=== PATIENT | female | born 2000 | race Caucasian/White ===

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

== ENCOUNTER 2022-02-24 04:25 | Emergency (ER) | payer OTHER ==
[~2022-02-24] VITALS: Ht 149.9 cm; Wt 99.0 kg
[2022-02-24 04:43] VITALS: BP 125/79
--- NOTE | 2022-02-24 04:46 | NUR ---
PT TO LOBBY.
--- NOTE | 2022-02-24 06:25 | NUR ---
pt to us via w/c
[2022-02-24] MEDS ORDERED: DICYCLOMINE HCL LIQUID 20 MG, ALUMINUM HYD/MAG/SIMETHICONE 30 ML, LIDOCAINE VISCOUS 2% ... PO ONE ×3 (06:50)
[2022-02-24 06:54] LABS: APPEARANCE,URINE CLEAR (CLEAR); BILIRUBIN,URINE NEGATIVE (NEGATIVE); BLOOD, URINE 1+ (NEGATIVE); COLOR,URINE YELLOW (YELLOW); LEUKOCYTE ESTERASE ,URINE NEGATIVE (NEGATIVE); NITRITE, URINE POSITIVE (NEGATIVE); UGLUCOSE NEGATIVE (NEGATIVE)
[2022-02-24 07:08] LABS: BASOPHILS # (AUTO) 0.1 K/uL (0.00-0.22); BASOPHILS % (AUTO) 0.6 % (0.0-2.0); EOSINOPHILS # (AUTO) 0.2 K/uL (0-0.4); EOSINOPHILS % (AUTO) 1.6 % (0.0-4.0); HEMATOCRIT 39.1 % (36-48); HEMOGLOBIN 13.3 g/dL (12.0-16.0); LYMPHOCYTES % (AUTO) 41.4 % (20.5-51.1); MEAN CORPUSCULAR HEMOGLOBIN 30 pg (27-31); MEAN CORPUSCULAR HGB CONC 34 g/dL (33-37); MEAN CORPUSCULAR VOLUME 87.3 fL (80-94); MONOCYTES # (AUTO) 0.7 K/uL (0.8-1.0); MONOCYTES % (AUTO) 7.1 % (1.7-9.3); NEUTROPHILS # (AUTO) 4.8 K/uL (1.8-7.7); NEUTROPHILS % (AUTO) 49.3 % (42.2-75.2); PLATELET COUNT (AUTO) 318 K/uL (140-450); RED BLOOD CELL COUNT(AUTO) 4.48 MIL/uL (4.20-5.40); RED CELL DISTRIBUTION WIDTH 13.5 % (11.6-13.7); WHITE BLOOD COUNT (AUTO) 9.7 K/uL (4.5-11.0)
[2022-02-24 07:25] LABS: WBC,URINE 0-5 /HPF (0-5)
[2022-02-24 07:26] LABS: OTHER CASTS, URINE None Seen /LPF (None Seen)
[2022-02-24] MEDS ORDERED: ALUMINUM HYD/MAG/SIMETHICONE 30 ML UDC ONE (07:26)
[2022-02-24] MEDS ORDERED: DICYCLOMINE HCL LIQUID 10 MG/5 ML UDC ONE (07:26)
[2022-02-24 07:43] LABS: ALBUMIN 3.6 g/dL (3.4-5.0); ANION GAP 12.9 (8-16); CARBON DIOXIDE 25.1 mmol/L (21-32); CHLORIDE 105 mmol/L (98-107); CREATININE 0.5 mg/dL (0.6-1.3); GFR ARICAN-AMERICAN 204 mL/min (>90); GLUCOSE 102 mg/dL (74-106); SODIUM SERUM 139 mmol/L (136-145); TOTAL BILIRUBIN 0.2 mg/dL (0.0-1.0); UREA NITROGEN, BLOOD 12 mg/dL (7-18)
[2022-02-24] MEDS ORDERED: SIME125T38 PO (07:59)
[2022-02-24] MEDS ORDERED: FAMO-92 PO (07:59)
[2022-02-24] MEDS ORDERED: ONDA-188 PO (07:59)
--- NOTE | 2022-02-24 08:15 | NUR ---
Dr Teran at bedside to give update and consult with pt
[2022-02-24 08:46] VITALS: BP 125/79
--- NOTE | 2022-02-24 08:46 | NUR ---
Patient discharged with v/s stable. Written and verbal after care instructions given and explained. Patient alert, oriented and verbalized understanding of instructions. Ambulatory with steady gait. All questions addressed prior to discharge. ID band removed. Patient advised to follow up with PMD. Rx of famotidine, ondansetron, simethicone (sent) given. Patient educated on indication of medication including possible reaction and side effects. Opportunity to ask questions provided and answered. work note and copy of labs given
== END 2022-02-24 08:46 | disposition home or self-care (01) ==
LOC: MED 04:25
DX: K29.70 Gastritis, unspecified, without bleeding (principal)
CPT/HCPCS: 36415; 76705; 80053; 81001; 81025; 85025; 87086; 99284

== ENCOUNTER 2022-05-05 21:41 | Emergency (ER) | payer OTHER ==
[~2022-05-05 21:41] MED LIST changes: +FAMO-92 PO; +ONDA-188 PO; +SIME125T38 PO
--- NOTE | 2022-05-05 22:13 | NUR ---
CALLED FOR PATIENT NO ANSWER
--- NOTE | 2022-05-05 22:13 | NUR ---
PATIENT LEFT WITHOUT BEING SEEN BY DR. CLEMENTE. NO FURTHER CARE PROVIDED FOR PATIENT.
== END 2022-05-05 22:13 | disposition left against medical advice (07) ==
LOC: MED 21:41
DX: M54.50 Low back pain, unspecified (principal); Z53.21 Procedure and treatment not carried out due to patient leaving prior to being seen by health care provider

== ENCOUNTER 2022-09-04 14:08 | Emergency (ER) | payer OTHER ==
[~2022-09-04] VITALS: Ht 152.4 cm; Wt 100.2 kg
[2022-09-04 14:27] VITALS: BP 129/68
[2022-09-04] MEDS ORDERED: NAPR-54 PO (15:36)
[2022-09-04] MEDS ORDERED: CYCL-711 PO (15:36)
--- NOTE | 2022-09-04 15:45 | NUR ---
Patient discharged with v/s stable. Written and verbal after care instructions given and explained. Patient alert, oriented and verbalized understanding of instructions. Ambulatory with steady gait. All questions addressed prior to discharge. ID band removed. Patient advised to follow up with PMD. Rx of FLEXERIL, NAPROXEN given. Patient educated on indication of medication including possible reaction and side effects. Opportunity to ask questions provided and answered.
== END 2022-09-04 15:45 | disposition home or self-care (01) ==
LOC: MED 14:08
DX: M54.2 Cervicalgia (principal); R03.0 Elevated blood-pressure reading, without diagnosis of hypertension; Z79.899 Other long term (current) drug therapy
CPT/HCPCS: 81025; 99283